=== PATIENT | female | born 2000 | race Caucasian/White ===

== ENCOUNTER 2023-04-26 19:36 | Emergency (ER) | payer OTHER, SELFPAY ==
[2023-04-26 19:43] VITALS: BP 116/75; PULSE 76; RESP 16; TEMP 36.6; O2SAT 100
--- NOTE | 2023-04-26 19:44 | ED.EAR ---
HPI - Ear Problem General Chief complaint: Ear Stated complaint: rt ear pain Time Seen by Provider: 04/26/23 19:47 Source: patient, RN notes reviewed and old records reviewed Mode of arrival: ambulatory Limitations: no limitations History of Present Illness HPI Narrative: 22 year old female who presents to [facility] care with complaints of right ear discomfort for the past 3 days. Patient reports that she has psoriasis in her ears and she has been scratching and thinks she has gotten an infection in her ear. Patient denies any fevers, chills or sweats or any body aches.Patient denies any drainage from her right ear, reports pain 3/10 described as aching and pruritic. MD Complaint: ear pain Location: right ear Duration: constant Discharge from ear: Reports no Related Data Allergies Allergy/AdvReac Type Severity Reaction Status Date / Time No Known Allergies Allergy Verified 04/26/23 19:49 Review of Systems Review of Systems: CONSTITUTIONAL: Denies malaise, chills, sweats, or fever. EYES: Denies visual changes, redness, or discharge. ENT: Reports no rhinorrhea, congestion, sinus pain,positive for right ear otalgia denies sore throat. CARDIOVASCULAR: Denies chest pain, palpitations, or edema. RESPIRATORY: Reports no cough.? Denies dyspnea. GASTROINTESTINAL: Denies abdominal pain, nausea, vomiting, diarrhea SKIN: Denies rash or itching. MUSCULOSKELETAL: Denies myalgia. NEUROLOGIC: Denies headache. All systems reviewed & are unremarkable except as noted in HPI and below PMFSH Past Medical History Medical History (Updated 04/26/23 @ 19:57 by Mickie Whitley NP) Psoriasis Social History Social History (Updated 04/26/23 @ 20:10 by Mickie Whitley NP) Smoking status: Never smoker Alcohol intake: current Alcohol use details: social rare Substance use type: does not use Gender identity (if verbalized by the patient): Female Comments At time of signature, agree with nursing past medical, surgical, social and family history. There is no relevant family history pertinent to the presenting complaint Exam Narrative: GENERAL: Well-appearing, well-nourished, and in no acute distress. HEAD: Normocephalic EYES: PERRLA, conjunctivae clear ENT: Nares clear, turbinates edematous and erythematous, clear discharge. Mucous membranes moist. TM pearly bright with dull light reflex bilaterally; positive for right tragal tenderness with irritation and redness of canal. Oropharynx erythematous without lesions. Tonsils not enlarged and without exudate, no drooling, no hoarseness, no trismus, uvula midline. NECK: Supple. No lymphadenopathy CHEST: Clear to auscultation, breath sounds equal. No wheezing, rhonchi, rales, or stridor. No respiratory distress, speaks in full sentences. HEART: Regular rate and rhythm. No murmur heard. SKIN: Warm, dry, no rash. NEURO: Alert and oriented x3. PSYCH: Normal mood and affect Course Course Emergency Course: Patient is aware of diagnosis, understands and agrees to treatment plan.? Anticipatory guidance given.? Patient agrees to follow-up as directed and is aware of reasons to seek care at the emergency department. Portions of this record may have been created with voice recognition software Level of Care: Express Care Visit Vital Signs Vital signs: Vital Signs Temperature 36.6 C 04/26/23 19:43 Pulse Rate 76 04/26/23 19:43 Respiratory Rate 16 04/26/23 19:43 Blood Pressure 116/75 04/26/23 19:43 Pulse Oximetry 100 04/26/23 19:43 Temperature 36.6 C 04/26/23 19:43 Pulse Rate 76 04/26/23 19:43 Respiratory Rate 16 04/26/23 19:43 Blood Pressure 116/75 04/26/23 19:43 Pulse Oximetry 100 04/26/23 19:43 Reviewed Medical Decision Making Differential Diagnosis Differential Diagnosis: psoriasis of ear canal, otitis externa, right ear pain. Medical Records Medical records reviewed: Yes I reviewed the external cristian
== END 2023-04-26 19:58 | disposition home or self-care (01) ==
PROVIDERS: Emergency Provider Registered Nurse
DX: H60.311 Diffuse otitis externa, right ear (principal); L40.9 Psoriasis, unspecified
CPT/HCPCS: 99213; G0463

== ENCOUNTER 2025-08-29 17:41 | Emergency (ER) | payer OTHER, SELFPAY ==
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
[2025-08-29 18:40] VITALS: BP 138/74; PULSE 100; RESP 18; TEMP 37; O2SAT 99
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
[2025-08-29 19:19] LABS: Hematocrit 41.7 % (37.0-47.0); Hemoglobin 13.9 g/dL (12.0-15.0); Immature Granulocyte Percent A 0.3 % (0-0.5); Lymphocytes Absolute Auto 2.23 K/mm3 (0.9-3.2); Mean Corpuscular HGB Conc 33.3 g/dl (32-36); Mean Corpuscular Hemoglobin 30.2 pg (26-34); Mean Corpuscular Volume 90.5 fl (80-100); Nucleated Red Blood Cells Absolute Auto 0.000 K/mm3 (0.0-0.012); Nucleated Red Blood Cells Perc 0.0 % (0.0-0.2); Platelet Count Result 285 k/mm3 (150-375); Red Blood Count 4.61 M/mm3 (4.2-5.4); White Blood Count 10.4 K/mm3 (4.5-10.0)
--- OUTSIDE RECORDS SUMMARY | 2025-08-29 19:24 | XMS_ITS | Clinical Summary ---
Author Organization [facility] [place] [address] [facility] tt Address [address] [place] [address] Care Team Providers Care Echocardiography Technologist Name Role Phone Fátima Gandhi Primary Care Provider Allergies No known active allergies Medications medroxyprogester one acetate (DEPO-PROVERA IM) Inject into the muscle as instructed Active mupirocin (Bactroban Nasal) 2 % nasal ointmentIndicati ons:Methicillin- Resistant S. 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 Immunizations Immunization Administration Dates Next Due DTaP 06/24/2006, 6,10/24/2002,02/15,2001,2001 H1N1 All Forms 11/17/2009 HPV, Quadrivalent 09/20/2015,01/03/2015,09/21/20 14 Hep A, Pediatric 07/13/2013,06/16/2012 Hep B, Adolescent or Pediatric 10/24/2002,2001,2001 Hib (PRP-D) 10/24/2002,2001,2001 IPV 06/24/2006, 2,2001,09/22 Influenza LAIV (Nasal) 09/22/2012 Influenza Nasal, Unspecified 09/22/2012,08/27/20 11,09/18/2010 Influenza, Quadrivalent, Spl it, Intramuscular 09/21/2014 Influenza, Quadrivalent, Spl it, Preservative Free, Intramuscular 10/07/2019,09/02/2017,10/16/2016,09/20 Influenza, Unspecified 08/30/2008 MMR 06/24/2006,07/25/2002 Meningococcal MCV4P (Menactra) 11/04/2017,2012 PPD TEST 06/24/2006 Tdap 07/13/2013 Varicella 04/10/2010,07/25/2002 Family History Relation Name Status Comments Father Alive Mother Alive Social History Tobacco Use Types Packs/Day Years Used Date Smoking Tobacco: Some Days Vaping Smokeless Tobacco: Never Alcohol Use Standard Drinks/Week Comments Yes 0 (1 standard drink = 0.6 oz pur e alcohol) PHQ-2 Answer Date Recorded PHQ-2 Total Score (If total score is 3 or more points, staff should administer the PHQ-9) 0 03/13/2022 Personal Safety Answer Date Recorded Getting School Help Needed Not on file 01/26 Comments Unknown Sex and Gender Information Value Date Recorded Sex Assigned at Not on file 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 Gender Identity Not on file Sexual Orientation Not on file Obstetrics History Last Filed Vital Signs Vital Sign Reading Time Taken Comments Blood Pressure 114/64 03/13/2022 2:32 PM CDT Pulse 108 03/13/2022 2:32 PM CDT Temperature 37 C (98.6 F) 03/13/2022 2:32 PM CDT Respiratory Rate 18 03/13/2022 2:32 PM CDT Oxygen Saturation 98% 03/13/2022 2:32 PM CDT Inhaled Oxygen Concentration - - Weight 68.6 kg (151 lb 3.2 oz) 03/13/2022 2:32 P M CDT Height 171.5 cm (5' 7.5) 03/13/2022 2:32 PM CDT Body Mass Index 23.33 03/13/2022 2:32 PM CDT Plan of Treatment Not on file Insurance [employer] [place] [address] [facility] H[facility]/PPO Address: [address] [address] [place] [address] [address] [place] [phone] Care Teams Echocardiography Technologist Relationship Specialty Start Date End Date Fátima Gandhi PA PCP - General Family Medicine 08/24/22
--- OUTSIDE RECORDS SUMMARY | 2025-08-29 19:24 | XMS_ITS | Clinical Summary ---
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 Gender Identity Not on file Sexual Orientation Not on file Plan of Treatment Health Maintenance Due Date Last Done Comments Hepatitis C Virus (HCV) Screening 2001 Hepatitis B Immunization (1 of 3 - 19+ 3-dose series) 2020 Influenza Immunization (#1) 2025 11/0 06/2019, 09/02/2017, 10/16/2016, Additional history exists SARS-COV-2 Immunization ( season) 2025 Respiratory Syncytial Virus (RSV) Immunization (Adult) (1 - 1-dose 75+ series) 2076 DTaP/Tdap/Td Immunization Discontinued 07/13/2013 TdaP Immunization Completed 07/13/2013 Human Papillomavirus (HPV) Immunization Completed 09/20/2015, 01/03/2015, 09/21/2014 Meningococcal Immunization (ACWY) Completed 11/04/2017, 07/13/2013 Pneumococcal Immunization Combined Aged Out No longer eligible based on patient's age to complete this topic Rotavirus Immunization Aged Out No lo nger eligible based on patient's age to complete this topic
[2025-08-29 19:27] LABS: INR 1.0; Prothrombin Time 13.5 Seconds (11.1-14.7)
[2025-08-29 19:28] LABS: Alanine Aminotransferase 17 U/L (6-35); Albumin Level 4.8 g/dL (3.5-5.1); Alkaline Phosphatase 63 U/L (38-126); Anion Gap 12 mmol/L (4-12); Aspartate Amino Transferase 28 U/L (14-36); Bilirubin,Total 0.6 mg/dL (0.2-1.3); Blood Urea Nitrogen 15 mg/dL (7-17); Calcium 9.6 mg/dL (8.4-10.2); Carbon Dioxide 22 mmol/L (22-30); Chloride 105 mmol/L (98-107); Estimated CRCL calculation 92 ml/min; Estimated Glomerular Filt Rate > 60; Glucose 91 mg/dL (65-110); Partial Thromboplastin Time 23.0 Seconds (22.3-36.8); Potassium 3.9 mmol/L (3.4-5.0); Sodium 139 mmol/L (137-145); Total Protein 8.2 g/dL (6.3-8.2)
[2025-08-29 19:38] LABS: BEDSIDEPREGUCG Negative (Negative)
[2025-08-29 19:42] LABS: Pregnancy On Board Control Positive
[2025-08-29 19:45] LABS: Add Urine Microscopic? YES; Appearance Urine Clear (Clear); Glucose Urine UA Negative (Negative); Leukocyte Esterase Ur Negative LEU/UL (Negative); Nitrate Urine Negative (Negative); Non Pathogenic Casts 0-2; Specific Grav Ur 1.028 (1.001-1.035)
[2025-08-29 20:41] VITALS: BP 131/77; PULSE 96; RESP 17; TEMP 36.4; O2SAT 100
[2025-08-29 20:42] VITALS: BP 137/86; PULSE 96; RESP 18; TEMP 36.4; O2SAT 100
== END 2025-08-29 20:44 | disposition home or self-care (01) ==
PROVIDERS: Registered Nurse; Emergency Provider Physician Assistant
DX: S16.1XXA Strain of muscle, fascia and tendon at neck level, initial encounter (principal); S20.219A Contusion of unspecified front wall of thorax, initial encounter; L40.9 Psoriasis, unspecified; V44.5XXA Car driver injured in collision with heavy transport vehicle or bus in traffic accident, initial encounter
CPT/HCPCS: 36415; 70450; 71260; 72125; 74177; 80053; 81001; 81025; 85025; 85610; 85730; 99284; Q9967